=== PATIENT | male | born 2000 | race American Indian/Alaskan Native ===

== ENCOUNTER 2021-09-14 08:00 | Outpatient (CLI) | payer OTHER | END 2021-09-14 08:30 | disposition home or self-care (01) | LOC: PPH VACUNA 08:00 | PROVIDERS: ATTEND Emergency Medicine Pediatric Emergency Medicine | DX: Z23 Encounter for immunization (principal) ==

== ENCOUNTER 2022-10-24 21:46 | Emergency (ER) | payer OTHER ==
[~2022-10-24] VITALS: Ht 165.1 cm; Wt 68.0 kg
== END 2022-10-24 23:47 | disposition home or self-care (01) ==
LOC: ER 21:46
DX: S60.412A Abrasion of right middle finger, initial encounter (principal); X58.XXXA Exposure to other specified factors, initial encounter; Y93.89 Activity, other specified; Y92.89 Other specified places as the place of occurrence of the external cause; Y99.9 Unspecified external cause status

== ENCOUNTER 2022-10-29 16:04 | Emergency (ER) | payer OTHER ==
[~2022-10-29] VITALS: Ht 165.1 cm; Wt 72.6 kg
== END 2022-10-29 21:09 | disposition home or self-care (01) ==
LOC: ER 16:04
DX: M54.89 Other dorsalgia (principal)

== ENCOUNTER 2023-04-08 07:33 | Outpatient (CLI) | payer OTHER | END 2023-04-08 07:41 | disposition home or self-care (01) | LOC: RAD 07:33 | DX: M99.01 Segmental and somatic dysfunction of cervical region (principal); M99.02 Segmental and somatic dysfunction of thoracic region; M99.03 Segmental and somatic dysfunction of lumbar region; M99.04 Segmental and somatic dysfunction of sacral region; M99.05 Segmental and somatic dysfunction of pelvic region ==

== ENCOUNTER 2025-02-06 21:48 | Inpatient (IN) | payer OTHER ==
[~2025-02-06] VITALS: Ht 167.6 cm; Wt 74.8 kg
[2025-02-06] MEDS ORDERED: METRONIDAZOLE/SODIUM CHLORIDE 500 MG/100 ML PIGGYBACK IV ONE (22:30)
[2025-02-06] MEDS ORDERED: FAMOTIDINE/PF 20 MG in 0.9 % SODIUM CHLORIDE 8 ML IV PUSH STA (22:30)
[2025-02-06] MEDS ORDERED: DIPHENOXYLATE HCL/ATROPINE 1 UDTAB TABLET PO ONE (22:45)
[2025-02-06] MEDS ORDERED: 0.9 % SODIUM CHLORIDE 1,000 ML IV SCH (22:45)
[2025-02-06 23:37] LABS: BASO % 1.0 % (0.1-1.2); EOS # 0.15 (0.04-0.54); EOS % 2.4 % (0.7-7.0); LYMPH # 2.46 (1.18-3.74); LYMPH % 39.7 % (19.3-53.1); MEAN PLATELET VOLUME 9.30 fl (9.4-12.4); MONO # 1.11 (0.24-0.82); NEUT # 2.39 (1.56-6.13); NEUT % 38.7 % (34.0-71.1); RED CELL DISTRIBUTION WIDTH 11.9 % (11.6-14.4)
[2025-02-07 00:01] LABS: ALT/SGPT 38.0 U/L (12-78); AST/SGOT 25.0 U/L (15-37); BILIRUBIN TOTAL 0.7 mg/dL (0.3-1.2); BUN CREA RATIO 6.0 (7.0-25.0); CREATININE SERUM 1.21 mg/dL (0.70-1.30); GFR 73.07; GLOBULINA 3.6 G/DL (2.4-3.5); GLUCOSE FASTING 84.0 mg/dL (65-100); OSMOLALITY SERUM 280.0 MOSM/KG (275-295)
[2025-02-07 00:03] LABS: FECAL LEUKOCYTES POSITIVE (NEGATIVE); ob POSITIVE (NEGATIVE)
[2025-02-07 00:19] LABS: COVID-19 AG NEGATIVE (NEGATIVE)
[2025-02-07 00:27] LABS: EOSINOPHIL MAN 3.0 %; LYMPHOCYTE MAN 31.0 %; MONO % 17.9 % (4.7-12.5); MONOCYTE MAN 22.0 %; NEUTROPHILS MAN 42.0 %
[2025-02-07] MEDS ORDERED: LACTOBACILLUS ACIDOPHILUS 1 CAP CAP PO STA (03:08)
[2025-02-07] MEDS ORDERED: FAMOTIDINE/PF 20 MG/2 ML VIAL IV ONE (08:45)
[2025-02-07] MEDS ORDERED: CIPROFLOXACIN IN 5 % DEXTROSE 400 MG/200 ML PIGGYBAG IV ONE (09:00)
[2025-02-07] MEDS ORDERED: MORPHINE SULFATE 2 MG/ML CARTRIDGE IV ONE (18:00)
[2025-02-07] MEDS ORDERED: 0.9 % SODIUM CHLORIDE 1,000 ML IV SCH (18:00)
[2025-02-07] MEDS ORDERED: FAMOTIDINE/PF 20 MG in 0.9 % SODIUM CHLORIDE 8 ML IV PUSH SCH (18:01)
[2025-02-07] MEDS ORDERED: MORPHINE SULFATE 4 MG/ML CARTRIDGE IV PRN (18:15)
[2025-02-07] MEDS ORDERED: ACETAMINOPHEN 500 MG GEL..CAP PO PRN (18:15)
[2025-02-07 19:31] VITALS: BP 115/76
[2025-02-07 19:47] LABS: INR 1.21
[2025-02-07 20:27] VITALS: BP 121/80; O2SAT 99
[2025-02-07] MEDS ORDERED: CIPROFLOXACIN IN 5 % DEXTROSE 200 ML IV SCH (21:00)
[2025-02-08 01:30] VITALS: BP 95/60; O2SAT 99
[2025-02-08 09:44] VITALS: BP 103/67; O2SAT 100
[2025-02-08 17:59] VITALS: BP 110/75; O2SAT 98
[2025-02-09 02:20] VITALS: BP 105/71
[2025-02-09 09:32] VITALS: BP 123/74
[2025-02-09] MEDS ORDERED: LACTOBACILLUS ACIDOPHILUS 1 CAP CAP PO SCH (17:00)
[2025-02-09 18:23] VITALS: BP 114/63; O2SAT 94
[2025-02-10 02:19] VITALS: BP 110/73; O2SAT 98
[2025-02-10 08:58] VITALS: BP 99/65; O2SAT 99
[2025-02-10] MEDS ORDERED: CIPRO500 MG PO (13:13)
[2025-02-10] MEDS ORDERED: PEPCID AC20 MG PO (13:13)
[2025-02-10] MEDS ORDERED: METRONIDAZOLE500 MG PO (13:13)
[2025-02-10] MEDS ORDERED: INTESTINEX680 M1 PO (13:13)
== END 2025-02-10 14:16 | disposition home or self-care (01) | DRG 392 ==
LOC: ER 22:31 → MEDJ 02-07 18:24
PROVIDERS: General Practice; ADMIT Internal Medicine; ATTEND Internal Medicine
PROC: BW21ZZZ Computerized Tomography (CT Scan) of Abdomen and Pelvis (ICD-10-PCS; principal; 2025-02-06)
DX: A09 Infectious gastroenteritis and colitis, unspecified (principal); A04.9 Bacterial intestinal infection, unspecified; E86.0 Dehydration